=== PATIENT | female | born 1945 | race Caucasian/White ===

== ENCOUNTER 2020-01-23 10:24 | Day surgery (SDC) | payer MEDICARE, MEDICAID ==
[~2020-01-23 10:24] MED LIST: Lactated Ringers 1,000 ML IV SCH; Midazolam 1 MG/ML 2 ML SDV ONE; Propofol 200 MG/20 ML SDV ONE; Sodium Chloride 0.9% 10 ML Syringe FLUSH PRN
--- NOTE | 2020-01-23 11:49 | PCM.HP.2 ---
H&P History of Present Illness - General Date of Service: 01/23/20 Admit Problem/Dx: Admission Diagnosis/Problem Admission Diagnosis/Problem Colonoscopy - History of Present Illness Initial Comments - Free Text/Narative: Here for colonoscopy for positive Cologuard - Related Data Allergies/Adverse Reactions: Allergies Allergy/AdvReac Type Severity Reaction Status Date / Time No Known Allergies Allergy Verified 01/23/20 11:37 Home Medications: Home Meds Benazepril [Lotensin] 20 mg PO DAILY 01/23/20 [History] Dapagliflozin Propanediol [Farxiga] 10 mg PO DAILY 01/23/20 [History] Insulin Degludec [Tresiba] 20 unit SQ DAILY 01/23/20 [History] atorvaSTATin [Lipitor] 20 mg PO BEDTIME 01/23/20 [History] metFORMIN HCl [Glucophage] 1,000 mg PO DAILY@01/23/20 [History] metFORMIN HCl [Glucophage] 500 mg PO DAILY@199901/23/20 [History] Past Medical History HEENT History: Reports: Cataract Cardiovascular History: Reports: High Cholesterol, Hypertension, Other (See Below) Other Cardiovascular History: dyslipidemia Endocrine/Metabolic History: Reports: Diabetes, Type II, Other (See Below) Other Endocrine/Metabolic History: Overweight, BMI 25-29.99 H&P Review of Systems - Review of Systems: Review Of Systems: Comprehensive ROS is negative, except as noted in HPI. Exam - Exam Exam: See Below - Vital Signs Weight: 78.925 kg - Exam General: Alert, Oriented Lungs: Clear to Auscultation, Normal Respiratory Effort Cardiovascular: Regular Rate, Regular Rhythm GI/Abdominal Exam: Soft, Non-Tender - Patient Data Lab Results Last 24 hrs: Laboratory Results - last 24 hr 01/23/20 Range/Units 11:28 POC Glucose 81 (65-110) mg/dl Problem List Initiated/Reviewed/Updated: Yes Orders Last 24hrs: Active Orders 24 hr Category Date Time Status Patient Status [ADT] Routine ADT 01/23/20 07:00 Active Peripheral IV Care [RC] . DIRECTED Care 01/23/20 07:00 Active Verify Patient Consent Obtain [RC] ASDIRECTED Care 01/23/20 07:00 Active Nothing Per Oral Diet [DIET] Diet 01/23/20 Breakfast Active Lactated Ringers [Ringers, Lactated] 1,000 ml Med 01/23/20 07:00 Active IV ASDIRECTED Sodium Chloride 0.9% [Saline Flush] Med 01/23/20 07:00 Active 10 ml FLUSH ASDIRECTED PRN Peripheral IV Insertion Adult [OM.PC] Routine Oth 01/23/20 07:00 Ordered Medication Orders Lactated Ringer's (Ringers, Lactated) 1,000 mls @ 125 mls/hr IV ASDIRECTED GARY Sodium Chloride (Saline Flush) 10 ml FLUSH ASDIRECTED PRN PRN Reason: Keep Vein Open Assessment/Plan Comment:: Positive Cologueard Ok to proceed with colonoscopy, risks and complications reviewed, consent obtained
--- NOTE | 2020-01-23 12:35 | PCM.OPNOTE ---
- General Post-Op/Procedure Note Date of Surgery/Procedure: 01/23/20 Operative Procedure(s): Colonoscopy with polypectomy Findings: Rectal Polyp Pre Op Diagnosis: Pos Cologuard Post-Op Diagnosis: Same Anesthesia Technique: LATRELL Primary Surgeon: Chris Nayak Anesthesia Provider: Carli Michael Complications: None Condition: Good
--- NOTE | 2020-01-23 13:31 | OR ---
Date of Procedure: 01/23/2020 PREOPERATIVE DIAGNOSIS: Positive Cologuard. POSTOPERATIVE DIAGNOSIS: Rectal polyp. PROCEDURE: Colonoscopy with polypectomy. ANESTHESIA: IV sedation. PROCEDURE IN DETAIL: The patient was brought to the procedure room where she was placed on her left side and IV sedation administered. Digital rectal exam was performed, which revealed a small polyp at the tip of the finger. The colonoscope was inserted and confirmed a 7 mm sessile polyp located 8 cm from the anal verge that was removed with a cautery snare at the end of the procedure. The scope was advanced through a fairly tortuous difficult colon to the level of the cecum. Cecal position was confirmed by identifying the appendiceal lumen and the ileocecal valve. Prep was good with some thick stool remaining at the beginning that was removed with irrigation and suction. Upon withdrawing the scope, the ascending, transverse, and descending colon were normal in appearance. Sigmoid colon was normal. The rectum had the polyp as described above, which was removed. Retroflexion was normal. Air was removed, and the scope withdrawn. Patient tolerated the procedure well and returned to recovery in stable condition. I do not feel that a further colonoscopy is necessary due to the patient's age and the small polyp that was present. DEEP CARUSO MD /[id number]
[2020-01-23 15:45] VITALS: BP 130/65; PULSE 77
== END 2020-01-23 13:44 | disposition home or self-care (01) ==
LOC: LL.SDS 10:24
PROVIDERS: ATTEND Surgery
DX: C82.93 Follicular lymphoma, unspecified, intra-abdominal lymph nodes (principal); Q43.8 Other specified congenital malformations of intestine; I10 Essential (primary) hypertension; E78.00 Pure hypercholesterolemia, unspecified; E78.5 Hyperlipidemia, unspecified; E11.9 Type 2 diabetes mellitus without complications; E66.3 Overweight; Z79.4 Long term (current) use of insulin; Z79.899 Other long term (current) drug therapy; Z68.28 Body mass index [BMI] 28.0-28.9, adult
CPT/HCPCS: 00812; 82962; J2250; J2704; J7120

== ENCOUNTER 2023-12-22 10:00 | Inpatient (IN) | payer MEDICARE, MEDICAID ==
[2023-12-22 11:01] LABS: BASOPHILS ABSOLUTE AUTO 0.04 K/uL (0.00-0.20); BASOPHILS PERCENT AUTO 0.7 % (0.0-2.0); EOSINOPHILS ABSOLUTE AUTO 0.23 K/uL (0.00-0.50); EOSINOPHILS PERCENT AUTO 3.9 % (0.0-5.0); HEMATOCRIT 25.7 % (34.0-46.0); HEMOGLOBIN 8.6 g/dL (11.7-15.5); LYMPHOCYTES ABSOLUTE AUTO 0.51 K/uL (0.50-3.50); LYMPHOCYTES PERCENT AUTO 8.6 % (10.0-50.0); MEAN CORPUSCULAR HEMOGLOBIN 33.2 pg (28.2-33.3); MEAN CORPUSCULAR HGB CONC 33.5 g/dL (31.7-36.0); MEAN CORPUSCULAR VOLUME 99.2 fL (84.0-98.0); MONOCYTES ABSOLUTE AUTO 0.41 K/uL (0.00-1.00); MONOCYTES PERCENT AUTO 6.9 % (2.0-14.0); NEUTROPHILS ABSOLUTE AUTO 4.74 K/uL (1.40-7.00); NEUTROPHILS PERCENT AUTO 79.9 % (45.0-80.0); PLATELET COUNT,PLT 85 K/uL (150-350); RED BLOOD CELL COUNT 2.59 M/uL (3.77-5.09); WHITE BLOOD CELL COUNT,WBC 5.9 K/uL (4.0-10.2)
[2023-12-22 11:11] LABS: INR 1.1 (0.9-1.1); PROTHROMBIN TIME 11.2 SEC (9.0-11.1)
[2023-12-22 11:15] LABS: ALBUMIN 3.4 g/dL (3.4-5.0); ANION GAP 11.3 meq/L (7-15); BILIRUBIN TOTAL 1.6 mg/dL (0.2-1.0); CALCIUM 9.1 mg/dL (8.5-10.1); CARBON DIOXIDE,CO2 21.7 mmol/L (21.0-32.0); EST CRCL DRUG DOSING (CG) 11.8 mL/min; MAGNESIUM 2.2 mg/dL (1.8-2.4); POTASSIUM,K 4.6 mmol/L (3.5-5.1); PROTEIN TOTAL,TP 7.3 g/dL (6.4-8.2)
[2023-12-22 11:17] LABS: CREATININE 3.65 mg/dL (0.51-1.17)
[2023-12-22] MEDS ORDERED: Naloxone 0.4 MG/ML SDV IVPUSH PRN (12:09)
[2023-12-22] MEDS: fentaNYL 50 MCG/ML SDV IVPUSH ONE (12:22)
[2023-12-22] MEDS: Sodium Chloride 0.9% 1,000 ML IV SCH (12:22)
[2023-12-22] MEDS: Sodium Chloride 0.9% 10 ML Syringe FLUSH PRN (12:23)
[2023-12-22] MEDS: Acetaminophen 325 MG Tab PO PRN (17:26)
[2023-12-22] MEDS: Morphine 2 MG/ML SYRINGE IVPUSH PRN (20:47)
[2023-12-23] MEDS ORDERED: Acetaminophen 500 MG Tab PO PRN (09:05)
[2023-12-23] MEDS: SITAGLIPTIN PHOSPHATE 50 MG PO SCH (10:01)
[2023-12-23 10:07] LABS: BASOPHILS ABSOLUTE AUTO 0.04 K/uL (0.00-0.20); EOSINOPHILS ABSOLUTE AUTO 0.27 K/uL (0.00-0.50); EOSINOPHILS PERCENT AUTO 6.7 % (0.0-5.0); HEMOGLOBIN 8.2 g/dL (11.7-15.5); LYMPHOCYTES PERCENT AUTO 12.4 % (10.0-50.0); MEAN CORPUSCULAR HEMOGLOBIN 33.1 pg (28.2-33.3); MEAN CORPUSCULAR HGB CONC 33.1 g/dL (31.7-36.0); MONOCYTES ABSOLUTE AUTO 0.44 K/uL (0.00-1.00); MONOCYTES PERCENT AUTO 10.9 % (2.0-14.0); NEUTROPHILS ABSOLUTE AUTO 2.77 K/uL (1.40-7.00); PLATELET COUNT,PLT 76 K/uL (150-350); RED BLOOD CELL COUNT 2.48 M/uL (3.77-5.09); RED CELL DISTRIBUTION WIDTH 14.2 % (11.2-14.1)
[2023-12-23 10:16] LABS: HEMATOCRIT 24.8 % (34.0-46.0)
[2023-12-23 10:22] LABS: ALBUMIN 3.1 g/dL (3.4-5.0); ANION GAP 9.3 meq/L (7-15); BILIRUBIN TOTAL 0.9 mg/dL (0.2-1.0); CALCIUM 8.7 mg/dL (8.5-10.1); CARBON DIOXIDE,CO2 22.7 mmol/L (21.0-32.0); EST CRCL DRUG DOSING (CG) 11.55 mL/min; POTASSIUM,K 4.4 mmol/L (3.5-5.1); PROTEIN TOTAL,TP 6.8 g/dL (6.4-8.2)
[2023-12-23 10:23] LABS: CREATININE 3.73 mg/dL (0.51-1.17)
[2023-12-23 10:29] LABS: INR 1.2 (0.9-1.1); PROTHROMBIN TIME 11.6 SEC (9.0-11.1)
[2023-12-23] MEDS: Sodium Chloride 0.9% 1,000 ML IV SCH (13:09)
[2023-12-23] MEDS ORDERED: fentaNYL 50 MCG/ML SDV IVPUSH PRN (15:06)
[2023-12-24] MEDS ORDERED: Cholecalciferol (Vitamin D3) 25 MCG Tab PO SCH (08:00)
[2023-12-24] MEDS ORDERED: Ferrous Sulfate 325 MG Tab PO SCH (08:00)
== END 2023-12-23 16:40 | DRG 683 ==
LOC: SUPCPDRO 10:00 → LL.ED 10:00 → LL.MS 16:12
PROVIDERS: ADMIT Physician Assistant; ATTEND Emergency Medicine
DX: K74.60 Unspecified cirrhosis of liver (principal); N17.9 Acute kidney failure, unspecified; R18.8 Other ascites; K74.69 Other cirrhosis of liver; K75.81 Nonalcoholic steatohepatitis (NASH); E78.00 Pure hypercholesterolemia, unspecified; M54.9 Dorsalgia, unspecified; E66.3 Overweight; E86.1 Hypovolemia; T39.315A Adverse effect of propionic acid derivatives, initial encounter; E11.9 Type 2 diabetes mellitus without complications; I10 Essential (primary) hypertension; Z79.899 Other long term (current) drug therapy; Z68.26 Body mass index [BMI] 26.0-26.9, adult
CPT/HCPCS: 36415; 80053; 82947; 83735; 83880; 85025; 85610; 96361; 96374; 99284-25; A9270-GY; J2270; J3010; J3490; J7030